=== PATIENT | female | born 1945 | race Caucasian/White ===

== ENCOUNTER 2024-02-26 00:32 | Outpatient (CLI) | payer OTHER, SELFPAY | END 2024-02-26 00:33 | disposition home or self-care (01) | LOC: AMB 03-18 11:24 | PROVIDERS: Visit Provider Family Medicine | DX: S89.91XA Unspecified injury of right lower leg, initial encounter (principal); S79.911A Unspecified injury of right hip, initial encounter; W18.30XA Fall on same level, unspecified, initial encounter; Y92.099 Unspecified place in other non-institutional residence as the place of occurrence of the external cause | CPT/HCPCS: A0425; A0433 ==